=== PATIENT | female | born 1970 ===

== ENCOUNTER 2017-12-22 06:54 | Day surgery (SDC) | payer OTHER ==
[2015-11-03 07:47] VITALS: BMI 27.4
[2017-12-22] MEDS ORDERED: Sodium Citrate/Citric Acid 15 ml Sol ONE (07:51)
[2017-12-22] MEDS ORDERED: Propofol 10 mg/ml Inj (20 ML) ONE ×2 (08:06→08:24)
[2017-12-22] MEDS ORDERED: Lactated Ringer's 500 ML IV ONE (08:10)
--- NOTE | 2017-12-22 08:14 | CP.SDSHP ---
Same Day Surgery H & P - History Proposed Procedure: egd Pre-Op Diagnosis: gerd - Allergies Allergies: Allergies codeine Allergy (Severe, Verified 11/03/15 07:51) SHAKING - Physical Exam General Appearance: nad Vital Signs: Vital Signs 12/22/17 07:39 Temperature 97 F L Pulse Rate 72 Respiratory 19 Rate Blood Pressure 110/59 L O2 Sat by Pulse 100 Oximetry Mental Status: Alert & Oriented x3 Neuro: WNL Heart: WNL Lungs: WNL GI: WNL - {Optional Preform as Required} Abdomen: WNL - Impression Pt. Evaluated Today:Candidate for Anesthesia & Procedure: Yes Short Stay Discharge - Short Stay Discharge Admitting Diagnosis/Reason for Visit: GASTRO-ESOPHAGEAL REFLUX DISEASE WITHOUT ESOPHAGIT Disposition: HOME/ ROUTINE
[2017-12-22 12:27] VITALS: BP 115/67; PULSE 60; RESP 17; O2SAT 100
== END 2017-12-22 09:50 | disposition home or self-care (01) ==
LOC: C.ENDO 06:54
PROVIDERS: ATTEND Internal Medicine Gastroenterology
DX: K21.0 Gastro-esophageal reflux disease with esophagitis (principal); B96.81 Helicobacter pylori [H. pylori] as the cause of diseases classified elsewhere; K29.50 Unspecified chronic gastritis without bleeding; K44.9 Diaphragmatic hernia without obstruction or gangrene

== ENCOUNTER 2018-12-14 15:45 | Outpatient (CLI) | payer OTHER | END 2018-12-14 15:46 | disposition home or self-care (01) | LOC: C.MAMMO 15:45 | DX: Z12.31 Encounter for screening mammogram for malignant neoplasm of breast (principal) ==